=== PATIENT | female | born 1995 | race Caucasian/White ===

== ENCOUNTER 2021-07-06 00:38 | Inpatient (IN) | payer OTHER, SELFPAY ==
[2021-07-06] VITALS (111 sets, daily range): BP systolic 82–143; BP diastolic 47–106; PULSE 56–152; RESP 16–18; TEMP 36.5–37; O2SAT 85–100; BMI 23.3
--- NOTE | 2021-07-06 01:14 | LDADM ---
This patient, Gala Falk, was admitted to Labor/Delivery/Recovery 105 on 07/06/21 at 00:38. Plans for labor, pain management and were discussed with patient. Patient/family oriented to hospital policies and general routines including ID bracelet, bed and alarms, visiting hours, pain management, procedures, bathroom and other care routines, personal items, smoking policy, room service/diet and guest tray routines, infant security routines, and visiting hours. Patient/Family are encouraged to report perceived risks to care and to ask questions if they do not understand what they are told or what they should do. See OBIX for further documentation.
[2021-07-06] MEDS: LACTATED RINGERS 1,000 ML 125 ML IV CONT ×3 (01:25→06:47)
[2021-07-06] MEDS: AMPICILLIN 2 GM/NS 100 ML 2 GM/100 ML BAG IVPB (01:25)
[2021-07-06 02:18] LABS: Basophils Percent Auto 0.3 % (0.2-1.2); Eosinophils Absolute Auto 0.1 K/mm3 (0-0.3); Eosinophils Percent Auto 0.5 % (0-4.4); Hematocrit 34.2 % (37.0-47.0); Hemoglobin 11.7 g/dL (12.0-15.0); Immature Granulocyte Absolute 0.06 K/mm3 (0.00-0.031); Immature Granulocyte Percent A 0.5 % (0-0.5); Lymphocytes Absolute Auto 1.86 K/mm3 (0.9-3.2); Mean Corpuscular HGB Conc 34.2 g/dl (32-36); Mean Corpuscular Hemoglobin 31.1 pg (26-34); Mean Platelet Volume 12.1 fl (7.4-10.4); Monocytes Absolute Auto 0.8 K/mm3 (0.1-0.6); Monocytes Percent Auto 6.6 % (2.6-8.5); Neutrophils Absolute Auto 8.9 K/mm3 (1.3-6.7); Neutrophils Percent Auto 76.1 % (45.5-73.1); Platelet Count Result 128 k/mm3 (150-375); Red Blood Count 3.76 M/mm3 (4.2-5.4); White Blood Count 11.7 K/mm3 (4.5-10.0)
[2021-07-06 02:29] LABS: Amphetamine Screen Urine Negative (Negative); Barbiturate Screen Urine Negative (Negative); Benzodiazepines Screen Urine Negative (Negative); Cannabinoid Screen Urine Positive (Negative); Cocaine Screen Urine Negative (Negative); Methadone Screen Urine Negative (Negative); Opiate Screen Urine Negative (Negative); Phencyclidine Screen Urine Negative (Negative)
--- NOTE | 2021-07-06 02:56 | WPDANESEPP ---
Anes - Eval Pre Procedure Procedure: labor epidural Date/Time: 07/06/21 02:56 Surgeon: jay Preop Diagnosis: pain during labor Pre Op Diagnosis: Labor Patient Data Age: 25 Gender: F Height: 1.65 m Weight: 63.63 kg Last Vital Signs Pulse 102 H 07/06/21 02:45 BP 100/76 07/06/21 02:45 Allergies Allergy/AdvReac Type Severity Reaction Status Date / Time No Known Allergies Allergy Verified 06/14/21 15:55 Home Medications Medication Instructions Recorded Confirmed Type vitamins-iron fumarate 65 1 tablet PO DAILY #90 tablet 06/01/21 07/06/21 Rx mg iron-folic acid 1 mg tablet Laboratory Tests 07/06/21 07/06/21 07/06/21 01:07 01:07 01:07 WBC 11.7 K/mm3 H K/mm3 (4.5-10.0) RBC 3.76 M/mm3 L M/mm3 (4.2-5.4) Hgb 11.7 g/dL L g/dL (12.0-15.0) Hct 34.2 % L % (37.0-47.0) MCV 91.0 fl fl (80-100) MCH 31.1 pg pg (26-34) MCHC 34.2 g/dl g/dl (32-36) RDW 13.0 % % (11.5-14.5) Plt Count 128 k/mm3 L k/mm3 (150-375) MPV 12.1 fl H fl (7.4-10.4) Immature Gran % (Auto) 0.5 % % (0-0.5) Neut % (Auto) 76.1 % H % (45.5-73.1) Lymph % (Auto) 16.0 % L % (18.3-44.2) Isabela % (Auto) 6.6 % % (2.6-8.5) Eos % (Auto) 0.5 % % (0-4.4) Baso % (Auto) 0.3 % % (0.2-1.2) Lymph # (Auto) 1.86 K/mm3 K/mm3 (0.9-3.2) Isabela # (Auto) 0.8 K/mm3 H K/mm3 (0.1-0.6) Eos # (Auto) 0.1 K/mm3 K/mm3 (0-0.3) Baso # (Auto) 0.0 K/mm3 K/mm3 (0.0-0.1) Abs Immat Gran (auto) 0.06 K/mm3 H K/mm3 (0.00-0.031) Absolute Neuts (auto) 8.9 K/mm3 H K/mm3 (1.3-6.7) Absolute Nucleated RBC 0.0 K/mm3 K/mm3 (0.0-0.012) Nucleated RBC % 0.0 % % (0.0-0.2) Urine Opiates Screen Urine Methadone Screen Ur Barbiturates Screen Ur Phencyclidine Scrn Ur Amphetamine Screen U Benzodiazepines Scrn Urine Cocaine Screen U Cannabinoids Screen RPR Pending Hep Bs Antigen HIV 1&2 Ab/P24 Ag 4thGn Pending Rubella IgG Antibody 07/06/21 07/06/21 07/06/21 01:07 01:07 01:07 WBC RBC Hgb Hct MCV MCH MCHC RDW Plt Count MPV Immature Gran % (Auto) Neut % (Auto) Lymph % (Auto) Isabela % (Auto) Eos % (Auto) Baso % (Auto) Lymph # (Auto) Isabela # (Auto) Eos # (Auto) Baso # (Auto) Abs Immat Gran (auto) Absolute Neuts (auto) Absolute Nucleated RBC Nucleated RBC % Urine Opiates Screen Negative (Negative) Urine Methadone Screen Negative (Negative) Ur Barbiturates Screen Negative (Negative) Ur Phencyclidine Scrn Negative (Negative) Ur Amphetamine Screen Negative (Negative) U Benzodiazepines Scrn Negative (Negative) Urine Cocaine Screen Negative (Negative) U Cannabinoids Screen Positive A (Negative) RPR Hep Bs Antigen Pending HIV 1&2 Ab/P24 Ag 4thGn Rubella IgG Antibody Pending Patient hx anesthesia problems: none Family hx anesthesia problems: none Results Review: All pre-operative results and documents have been reviewed as part of the pre-operative evaluation. [facility] Past Medical History Medical History (Updated 06/01/21 @ 15:57 by Андрей Hernandez MD) 1 Depression 4 para 2 Migraine Oligohydramnios depression hemorrhage Suppression of menstruation Surgical History Surgical
[2021-07-06 02:59] LABS: Rubella IgG Antibody 9.3 IU/ML
[2021-07-06 03:16] LABS: Hepatitis B Surface Antigen Negative (Negative)
[2021-07-06 03:25] LABS: HIV 1/2 Ab P24 Ag Result Negative (Negative)
[2021-07-06] MEDS: AMPICILLIN 1 GM/NS 50 ML 1 GM/50 ML BAG IVPB (05:30)
--- NOTE | 2021-07-06 07:33 | PM.IMHP ---
H&P: HPI History of Present Illness Date/Time: 07/06/21 07:33 Gala is a 25yo @ 37.5wks who presented to L&D with contractions and was found to be 5-6cm. She denied leakage of fluid. No VB. Good movement. Now s/p epidural. She has made adequate change; now 9cm. Her is complicated by: - Limited care; 2 visits - Marijuana and tobacco use Chief Complaint: contractions Review of Systems Review of Systems: All systems reviewed & are unremarkable except as noted in HPI and below (HPI) [facility] Past Medical History Medical History 1 Depression 4 para 2 Migraine Oligohydramnios depression hemorrhage Suppression of menstruation Surgical History Surgical History No pertinent past surgical history Family History Family History Father Family history of malignant neoplasm Family history of elevated blood lipids Grandparent Family history of malignant neoplasm Diabetes mellitus Mother Diabetes mellitus Social History Social History Years smoked: 7 Smoking status: Current every day smoker Tobacco type: cigarettes Second hand tobacco smoke exposure: Yes Alcohol intake: never Substance use: current Substance use type: marijuana Other substance usage details: 1-2 times weekly Last use: last time 07/04/21 Additional living arrangements comments: parents 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 [employer] Gender identity (if verbalized by the patient): Female Sexual Orientation (if Verbalized by the Patient): Straight or Heterosexual Spiritual care concerns: No Meds Home Medications and Allergies Home Medications Medication Instructions Recorded Confirmed Type vitamins-iron fumarate 65 1 tablet PO DAILY #90 tablet 06/01/21 07/06/21 Rx mg iron-folic acid 1 mg tablet Allergies Allergy/AdvReac Type Severity Reaction Status Date / Time No Known Allergies Allergy Verified 06/14/21 15:55 Vital Signs Vital Signs - 24 hr 07/06/21 01:00 07/06/21 01:15 07/06/21 01:31 Temperature Pulse Rate 67 69 99 Blood Pressure 97/52 L 104/66 132/75 Pulse Oximetry 07/06/21 01:46 07/06/21 02:00 07/06/21 02:15 Temperature Pulse Rate 64 66 62 Blood Pressure 105/68 101/64 105/51 L Pulse Oximetry 07/06/21 02:30 07/06/21 02:45 07/06/21 02:59 Temperature Pulse Rate 69 102 H 91 Blood Pressure 107/60 100/76 122/80 Pulse Oximetry 99 07/06/21 03:00 07/06/21 03:02 07/06/21 03:04 Temperature 97.9 F Pulse Rate 91 85 97 Blood Pressure 115/79 120/77 113/72 Pulse Oximetry 99 07/06/21 03:06 07/06/21 03:07 07/06/21 03:08 Temperature Pulse Rate 98 76 Blood Pressure 113/70 112/78 Pulse Oximetry 85 L 07/06/21 03:10 07/06/21 03:11 07/06/21 03:12 Temperature Pulse Rate 96 85 Blood Pressure 95/73 L 116/60 Pulse Oximetry 98 07/06/21 03:14 07/06/21 03:16 07/06/21 03:19 Temperature Pulse Rate 77 90 102 H Blood Pressure 119/68 117/64 111/59 L Pulse Oximetry 07/06/21 03:21 07/06/21 03:23 07/06/21 03:24 Temperature Pulse Rate 98 86 95 Blood Pressure 103/61 82/47 L 108/72 Pulse Oximetry 07/06/21 03:26 07/06/21 03:28 07/06/21 03:30 Temperature Pulse Rate 80 84 91 Blood Pressure 106/59 L 116/69 105/68 Pulse Oximetry 07/06/21 03:32 07/06/21 03:34 07/06/21 03:36 Temperature Pulse Rate 78 80 71 Blood Pressure 110/62 113/62 117/68 Pulse Oximetry 07/06/21 03:37 07/06/21 03:38 07/06/21 03:41 Temperature Pulse Rate 80 93 Blood Pressure 111/69 106/62 Pulse Oximetry 100 07/06/21 03:42 07/06/21 03:44 07/06/21 03:46 Temperature Pulse Rate 87 71 88 Blood Pressure 103/60 11
--- NOTE | 2021-07-06 07:42 | WPDHPUPDATE1 ---
History and Physical Update Update Date/Time: 07/06/21 07:42 History and Physical has been reviewed, including an updated exam of the patient. There are NO changes in the patient's condition. Risks, benefits, and alternatives have been discussed and questions answered. Patient agrees to proceed with procedure.
[2021-07-06] MEDS: OXYTOCIN 30 UNITS/NS 500 ML 30 UNITS/500 ML BAG 999 UNITS IV CONT (08:27)
--- NOTE | 2021-07-06 08:39 | P.PCNOB_ITS ---
OB - Delivery Note Procedure Delivery date: 07/06/21 Events: No Care (only 2 visits) Delivery augmentation: Rupture of Membranes Delivery monitor: External FHT and External Uterine Route of delivery: Laceration Description: None Specimen: Yes (placenta) Quantitative Blood Loss (ml): 205 Anesthesia type: Epidural (did not work well) Disposition: floor [place] Baby Date of : 07/06/21 Time of : 08:25 Weeks of gestation at delivery: 37 (.5) Infant gender: Male Weight (pounds): 6 Weight (ounces): 14 presentation: vertex position: Right Occiput Transverse Placenta delivery description: Expressed Cord Vessel Description: 3 Vessels, Clamped/Cut and Delayed Cord Clamping score one minute: 8 score five minutes: 9 Narrative: Gala progressed to complete dilation with strong desire to push as her epidural was not working well. She pushed for approximately 10 minutes and delivered the head over intact perineum. No nuchal cord was palpated. She easily delivered the infant's shoulders and body without complications. The was immediately placed skin to skin and he had spontaneous cry. Delayed cord clamping was performed. The umbilical cord was then clamped and cut. A segment of the cord was collected for cord gases. The remaining cord blood was collected for typing. With Pitocin running and gentle downward traction on the cord, the placenta delivered dirty glover style. Bimanual massage was performed and a small piece of membranes were removed as well as a large clot. The uterus was then found to be well contracted with minimal bleeding. She was examined and no lacerations were noted. Bleeding remained minimal with good uterine tone. Sponge, lap, instrument, and needle counts were correct at the end the procedure. Mom and baby were left bonding in the birthing suite in stable condition. [facility] Delivery Billing Delivery Delivery: Delivery Charge
[2021-07-06] MEDS: OXYTOCIN 30 UNITS/NS 500 ML 30 UNITS/500 ML BAG 125 UNITS IV CONT (09:18)
[2021-07-06] MEDS: IBUPROFEN 600 MG TABLET PO ×2 (10:24→17:54)
[2021-07-06] MEDS: BENZOCAINE 20% AER SPR (*SP) 56 GM CAN 1 SPRAY TOPICAL (10:34)
[2021-07-06] MEDS: WITCH HAZEL 40 PADS 1 PAD TOPICAL (10:34)
--- NOTE | 2021-07-06 12:59 | PC.NURSE ---
Patient transferred to post room #280 per wheelchair. Support person present. Oriented to unit, room, information board, rooming in, admission packet and security measures. Patient verbalizes understanding.
[2021-07-06 14:53] LABS: Rapid Plasma Reagin Non-Reactive (NonReactive)
[2021-07-06] MEDS: DOCUSATE SODIUM 100 MG CAPSULE PO (17:54)
[2021-07-07 04:15] VITALS: BP 103/67; PULSE 68; RESP 16; TEMP 36.6
[2021-07-07 05:43] LABS: Hematocrit 34.6 % (37.0-47.0); Hemoglobin 11.4 g/dL (12.0-15.0)
--- NOTE | 2021-07-07 06:55 | PM.OBPNVD ---
OB - PN: Subj Subjective Date/time seen: 07/07/21 06:55 Narrative: PPD#1 Gala reports doing well today. 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 Her pain is controlled. She is tolerating regular diet, voiding, passing gas, and ambulating without issues. She is breast and bottle feeding. She would like her son circumcised. OB - PN: Obj Data Labs CBC & Chem 7: 07/07/21 04:36 Labs: Laboratory Results - last 24 hr 07/06/21 07/07/21 01:07 04:36 Hgb 11.4 L Hct 34.6 L RPR Non-reactive OB - PN A/P Assessment and Plan (1) Normal vaginal delivery: Code(s): O80 - Encounter for full-term uncomplicated delivery Status: Acute Plan day: 1 Plan: routine care and discharge home (tomorrow) Comments: - Pelvic rest; take meds as prescribed - ER return precautions: fever, n/v/abd pain, bleeding, HTN Time Spent With Patient Time: Total time spent is greater than 50% in coordination of care (as documented) at patient's floor/unit and/or counseling patient: Review of Systems Constitutional: Constitutional: Denies chills, Denies fever(s) and Denies headache(s) Eyes: Eyes: Denies change in vision ENT: Denies dizziness and Denies headache(s) Cardiovascular: Cardiovascular: Denies chest pain, Denies palpitations and Denies dyspnea Respiratory: Respiratory: Denies cough and Denies dyspnea Gastrointestinal: Gastrointestinal: Denies nausea and Denies vomiting Neurologic: Denies dizziness and Denies headache(s) Endocrine: Endocrine: Denies palpitations Exam Const: General: cooperative, comfortable and no acute distress Orientation/consciousness: patient oriented x3 Resp: Effort & Inspection: normal respiratory effort Auscultation: clear to auscultation bilaterally Cardio: Rate: regular rate GI: Inspection: non-distended GI Palp: No abdominal tenderness and Yes Soft to palpation Auscultation: normal bowel sounds : Other: fundus firm Skin: General skin exam: normal color Neuro: General: patient oriented x3 Extrem: General: normal to inspection Psych: Appearance: grossly normal Affect: normal affect Attitude: cooperative
[2021-07-07 07:35] VITALS: BP 96/59; PULSE 67; RESP 18; TEMP 36.8; O2SAT 100
--- NOTE | 2021-07-07 11:48 | WPDANLDPN2 ---
Anes-Prog Note L&D Date/Time: 07/07/21 11:48 Comfortable throughout: labor and delivery Neuraxial method: epidural Epidural/Spinal procedure site: clean & non-tender Neuro status: Neuro function grossly intact. Cardiovascular status: normal Respiratory status: normal Airway patency: baseline Mental status: baseline Post-Op hydration status: normal Vital Signs: Last Vital Signs Temp 36.8 C 07/07/21 07:35 Pulse 67 07/07/21 07:35 Resp 18 07/07/21 07:35 BP 96/59 L 07/07/21 07:35 Pulse Ox 100 07/07/21 07:35 Pain score (VAS): 2 Post-procedural complaints: none Patient feedback: Patient satisfied with anesthetic care.
[2021-07-07] MEDS: MEASLES,MUMPS,RUBELLA VACCINE 0.5 ML VIAL SUB-Q (13:42)
--- NOTE | 2021-07-07 13:47 | PC.NURSE ---
Care Coordination here to see pt.
--- NOTE | 2021-07-07 13:55 | PCCCNOTE ---
Care Coordination met with pt. and FOB this afternoon to discuss discharge planning. Pt.'s current D/C plan is to return home with her parents and 3 children. Pt. states that her family is supportive. Pt. has everything needed to safely bring baby home. Pt. will bottle feed baby until her breast milk comes in. Pt. states that her father will pick them up at time of D/C. Pt. has no open DCFS cases. Pt. had limited care due to transportation issues. Pt. tested positive for marijuana at time of admission. Baby was not tested. No further need for CC services
--- NOTE | 2021-07-11 08:04 | PM.OBDSVD ---
DS: Admitting Diagnosis Discharge Date 07/07/21 Admitting Diagnosis active labor DS: Discharge Diagnosis Discharge Diagnosis (1) Normal vaginal delivery: Code(s): O80 - Encounter for full-term uncomplicated delivery Status: Acute OB - DS: Summary OB Procedures : Ultrasound OB Procedures Intrapartum: Spontaneous Vag Delivery OB Procedures: : None Peripartum Data Delivery Method: Natural Vaginal Laceration Description: None complications: none 1: Gender: Male Disposition of : home Status at Discharge Functional status at discharge: independent ambulation Overall status at discharge: patient is back to baseline Time Spent with Patient Time attestation: Total time spent providing and/or coordinating discharge services: Time spent: Less than 30 minutes Exam Const: General: cooperative, comfortable and no acute distress Orientation/consciousness: patient oriented x3 Resp: Effort & Inspection: normal respiratory effort Auscultation: clear to auscultation bilaterally Cardio: Rate: regular rate GI: Inspection: non-distended GI Palp: No abdominal tenderness and Yes Soft to palpation Auscultation: normal bowel sounds : Other: fundus firm Skin: General skin exam: normal color Neuro: General: patient oriented x3 Extrem: General: normal to inspection Psych: Appearance: grossly normal Affect: normal affect Attitude: cooperative DS: Data Data Completed and Pending Pending studies at discharge: Pending at discharge 07/06/21 08:31 Surgical [PTH] Routine Discharge Plan Discharge Attending physician on discharge: Linh Cox Discharging Clinician: Linh Cox Anticipated Discharge Date/Time: 07/07/21 14:00 Patient Disposition: Home, Self-Care Activity: may shower, may drive after 2 weeks and pelvic rest Diet: regular Discharge Instructions: Education: Mom and Baby Guide Given to: Mother Follow-Up: Call your delivering provider's office for an appointment to be seen in: 4 Weeks [facility]. Appointment Date/Time: July 08, 2021 at 10:00 am What to expect at your follow-up visit: Physical Assessment Call [phone] if you are unable to keep your appointment time. BREAST CARE: * Wear a snug supportive bra. * For engorgement discomfort: Bottle Feeding: * May apply ice packs PERINEAL CARE: * Until bleeding stops, use your alina bottle after urinating * Change your pad frequently throughout the day * You may take sitz baths several times a day (fill your bathtub with warm water and soak for 20 minutes.) Do NOT bathe in the water * No tub baths until seen by your physician - You may shower ACTIVITY: * Rest as much as possible. * Do not exercise or lift anything heavier than your baby (such as laundry or other children.) * Avoid stairs or driving as much as possible. * Do not put anything into the vagina. No douching, tampons, or sexual activity until seen by physician. NOTIFY PHYSICIAN IF YOU HAVE ANY QUESTIONS OR IF ANY OF THE FOLLOWING SYMPTOMS OCCUR: * If your perineum becomes red, swollen, or more painful than what you have experienced in the hospital. * If your vaginal bleeding becomes foul smelling. * If your vaginal bleeding becomes more heavy than a period or if your bleeding changes from pink to bright red. However, you may pass an occasional walnut-sized clot once or twice for the first week . * If you experience a sharp, shooting pain in you calves. * If you discover a hard, reddened area on your breast or if you experience flu-like symptoms. DIET: * Eat regular, well-balanced meals. * Drink plenty of fluids daily. Patient Instructions: Antibiotic Form Stand Alone Forms: General Discharge Information Follow-up/Referrals: Linh Cox MD [Physician] - 4 Weeks Discha
== END 2021-07-07 15:55 | disposition home or self-care (01) | DRG 807 ==
LOC: ANHLDR 01:11 → ANHOB2 07-07 07:34 → ANHLDR 07-08 09:31 → ANHOB2 07-08 09:31
PROVIDERS: Admitting Provider Obstetrics & Gynecology; Visit Provider Obstetrics & Gynecology
DX: O99.334 Smoking (tobacco) complicating childbirth (principal); Z37.0 Single live birth; Z3A.37 37 weeks gestation of pregnancy; O99.324 Drug use complicating childbirth; F17.210 Nicotine dependence, cigarettes, uncomplicated; F12.90 Cannabis use, unspecified, uncomplicated; O36.8330 Maternal care for abnormalities of the fetal heart rate or rhythm, third trimester, not applicable or unspecified
CPT/HCPCS: 36415; 80307; 85014; 85018; 85025; 86592; 86703; 86762; 86850; 86900; 86901; 87340; 88307; 90710; A9270; G0432; J0290; J2590; J2795; J7120